=== PATIENT | female | born 1945 | race Caucasian/White ===

== ENCOUNTER 2016-05-30 18:41 | Emergency (ER) | payer MEDICARE ==
[~2016-05-30] VITALS: Ht 167.6 cm; Wt 66.4 kg
[~2016-05-30 18:41] MED LIST: ALPR0.254 PO; ASPI-973 PO; CALC1CAP22 PO; CIPR-198 PO; FAMO20T PO; FERR325T39 PO; FIBE1TAB4 PO; GLIP10TA10 PO; LEVO150T5 PO; LORA1TAB PO; LOSA1TAB70 PO; METF500T4 PO; NPH,100V10 SUBQ; OMEG1CAP25 PO; ONDA-54 PO; PANT40TA2 PO; PANT40TA3 PO; PRAV10TA2 PO; RES30 PO; SENN25TA8 PO; SLO64 PO
--- NOTE | 2016-05-30 18:50 | ED.REPORT ---
HPI-Chest Pain 40 and Over Date of Service May 30, 2016 ED Provider: Alexy Florence DO 70 year old female with a history of CAD, hyperlipidemia, HTN, cardiac stent placement, cholecystectomy, and type II diabetes presents to the ER accompanied by her complaining of "a couple days" of intermittent heavy, aching left chest pressure while walking around [employer], with radiation down her left arm. Pain onset today about an hour ago after eating dinner. She has experienced similar symptoms in the past. Associated symptom of nausea. Patient denies SOB, vomiting and diarrhea. Nursing Notes Stated Complaint: CHEST PAIN Nursing Notes Reviewed: Yes Allergies: Coded Allergies: Adhesives (Verified Allergy, Intermediate, Rash, 05/30/16) oxycodone (Verified Allergy, Unknown, vomiting, 05/30/16) amoxicillin (Verified Adverse Reaction, Mild, Diarrhea, 05/30/16) Uncoded Allergies: BANDAID ADHESIVE (Allergy, Mild, 12/05/11) Scheduled Amlodipine (Amlodipine) 10 Mg Tablet 10 MG PO DAILY Aspirin (Aspirin) 81 Mg Tablet 81 MG PO MORNING Bran/Gum/Fib/Katie/Psyl/Kelp/Pec (Fiber 6 Tablet) 1,000 Mg Tablet 1,000 MG PO DAILY Calcium Carbonate/Vitamin D3 (Calcium 600 + Vit D 400 Softgl) 1 Each Capsule 1 CAPSULE PO DAILY Fluoxetine (Fluoxetine) 10 Mg Capsule 10 MG PO DAILY Glipizide (Glipizide) 10 Mg Tablet 5 MG PO DAILY Insulin Glargine (Lantus U100 Solostar Insulin Pen) 100 Unit/1 Ml Insuln.pen 15 UNIT SUBQ HS Levothyroxine (Levothyroxine) 137 Mcg Tablet 137 MCG PO DAILY Losartan Potassium (Losartan Potassium) 100 Mg Tablet 100 MG PO DAILY Magnesium Chloride (Slow-Mag) 64 Mg Tablet 64 MG PO TID Metformin ER (Metformin ER) 750 Mg Tablet 750 MG PO DAILY [place]-3 Fatty Acids/Fish Oil ([place] 3 Fish Oil Softgel) 1 Each Capsule.dr 2 CAPSULE PO QAM Pantoprazole DR (Pantoprazole DR) 40 Mg Tablet.dr 40 MG PO MORNING 30 minutes before meal. Pravastatin (Pravastatin) 10 Mg Tablet 5 MG PO HS Ranitidine (Ranitidine) 150 Mg Capsule 150 MG PO HS Scheduled PRN Temazepam (Temazepam) 30 Mg Cap 30 MG PO HS PRN PRN For Sleep Miscellaneous Medications Melatonin (Melatonin) 1 Mg Tablet 3 MG PO [place]-3 Fatty Acids/Fish Oil ([place] 3 1,000 mg Softgel) 1 Each Capsule 2 EACH PO General Time Seen by MD: 18:49 Chief Complaint Chest pain Hx Obtained From: Patient, Spouse Arrived By: Walk-in Sudden in Onset?: No Onset Occurred: 2 days ago Symptom Duration: Since onset Location: : Chest left Quality: Aching, Heaviness Radiation: : Arm left Severity: Current: Moderate Severity: Maximum: Moderate Similar Sx Previous: Yes Past Medical History Past Medical History Notes: PCP: Dr. Avendaño Supervisor [place] Department: Dr. Maguire Admitted in April 2014, fully ruled out, nuclear stress test negative Seen 09/21/15 for CP in, Negative workup with neg EKG, troponin x 2, D/C'd to home Past Medical History Coronary artery disease Type II diabetes, insulin requiring Hypothyroidism Sleep apnea IBS Anxiety Reports: GERD, Hyperlipidemia, Hypertension Reports: Thyroid disease, Urinary tract infection Past Surgical History Cardiac catheterization with stent to LAD in 2011 EGD w/gastritis and colonoscopy by Dr. Stephens in 2012 Hemorrhoid banding Colonoscopy and EGD by Dr. Daniel 07/31/15 (normal except possible short segment Anthony's Reports: Angioplasty, Cholecystectomy Reports: Tubal ligation Family History Extensive family history of heart disease Smoking History Former Smoker Social History Alcohol Use: "Social" Drug Use: Denies drug use Other Social History: Good social support, , Local resident Ambulatory Status Independent Review of Systems Constitutional: Denies: Chills, Fever Respiratory: Denies: Non-productive cough, Shortness of breath Cardiovascular: Reports: Chest pain GI: Reports: Nausea, Denies: Vomiting Musculoskeletal: Reports: Extremity pain (Left Arm), Denies: Back pain, Neck pain Skin: Denies Diaphoresis Complete sys rev & neg: except as marked. Physical Exam Initial Vital Signs Vital Signs (First) Date Time Temp Pulse Resp B/P Pulse Ox O2 Delivery O2 Flow Rate FiO2 05/30/16 19:05 36.6 51 13 152/61 96 Room Air Initial VS: Reviewed Head / Eyes: Atraumatic, Normocephalic Neck: Supple, Non-tender, Full range of motion Extremities: Vascular intact, Neuro intact, No swelling, No tenderness Skin: Warm, Dry, No cyanosis Neurologic: Alert, Oriented, Nonfocal Psychiatric: Mood/affect normal, Behavior normal, Normal thought content General/Constitutional: Awake, Alert, Well developed, Well nourished Distress / Hydration: Positive: Distress mild Respiratory / Chest: Breath sounds NL, Breath sounds = bilat, No respiratory distress, No rales, No rhonchi, No wheezing, No stridor, No chest tenderness Cardiovascular: Heart rate NL, Regular rhythm, Heart sounds NL, No murmurs, Peripheral circulation NL, Pulses = bilaterally, No gross BP differential Abdomen: Soft, Non-tender, No guarding, No rebound, No distention Interpretation & Diagnostics Lab Results Interpretation Result Diagram: 05/30/16 19005/30/16 190 Test 05/30/16 19:00 05/30/16 22:34 White Blood Count 6.5th/mm3 (3.8-10.1) Red Blood Count 4.72mil/mm3 (3.90-5.20) Hemoglobin 13.7g/dL (12.0-15.6) Hematocrit 41.6% (35.0-46.0) Mean Corpuscular Volume 88.1fL (81-100) Mean Corpuscular Hemoglobin 29.0pg (27.0-35.0) Mean Corpuscular Hemoglobin Concent 32.9% (32.0-37.0) Red Cell Distribution Width 13.5% (12.3-15.4) Platelet Count 244bil/L (150-400) Neutrophils (%) (Auto) 60.0% (40-74) Lymphocytes (%) (Auto) 30.5% (14-46) Monocytes (%) (Auto) 6.2% (4-12) Eosinophils (%) (Auto) 2.8% (0-5) Basophils (%) (Auto) 0.5% (0-3) D-Dimer < 0.50mg/L FEU (<0.50) Sodium Level 139mEq/L (134-144) Potassium Level 4.0mEq/L (3.5-5.2) Chloride Level 101mEq/L (97-108) Carbon Dioxide Level 23mmol/L (18-29) Blood Urea Nitrogen 23mg/dL (8-27) Creatinine 0.49mg/dL (0.57-1.00) Estimat Glomerular Filtration Rate 178mL/min (>59) Glucose Level 165mg/dL (60-99) Calcium Level 9.5mg/dL (8.5-10.1) Magnesium Level 1.9mg/dL (1.6-2.6) Total Bilirubin 0.3mg/dL (0.0-1.2) Aspartate Amino Transf (AST/SGOT) 21U/L (0-50) Alanine Aminotransferase (ALT/SGPT) 23U/L (0-32) Alkaline Phosphatase 81U/L (25-165) Total Protein 7.2g/dL (6.4-8.4) Albumin 4.4g/dL (3.4-5.0) Lipase 16U/L (13-60) Hold Santiago Top Tube Received (Received) Troponin T 0.010ug/L (0.0-0.011) ECG Interpretation ECG Interpretation: Sinus rhythm, rate 61 Time: 19:17 Interpreted by: ED physician ECG Interpretation: Sinus bradycardia Time: 00:09 Interpreted by: ED physician Normal ECG Interpretation: Normal sinus rhythm, No acute ischemic changes, Normal QRS, Normal axis, Normal intervals, No change from prior ECGs, Adequate tracing X-Ray Chest Interpretation Chest Xray Interpretation: IMPRESSION: No acute disease is seen in the upright portable chest. Dictated by: Keaton Arguello M.D. on 05/30/2016 at 19:07 Approved by: Keaton Arguello M.D. on 05/30/2016 at 19:07 View: Portable, 1 view Interpretation / Wet Read by: Interpret - Radiologist Re-Eval/Medical Decision Med Decision/Clinical Course 70-year-old female with history of coronary disease and reflux presents with burning chest pain. Her pain did radiate down the left arm. EKGs were not essentially normal without evidence of ischemia. Serum troponins were negative. IV Protonix was given with some relief. My recommendations were for hospital observation serial troponins and a stress test due to the nature of her complaint. Certainly may well be gastrointestinal however with her history of stents I think that she should have a stress test. I discussed this with her. She would not stay if it were an observation status for insurance reasons. With her normal troponin and EKGs I am compelled to admit her as observation status. She would not agree to this. She did agree to the 4 hour troponin. She does agree to follow-up. I have her cell phone number and I tacked that her. I will be in touch with her tomorrow. We will also send copy of the note off to her moss gatherer to help arrange for close outpatient follow- up. Time of Eval: 19:37 Re-Evaluation/Progress Note: Discussed lab and imaging results. Updated patient on the plan of care. Time of Eval: 23:41 Re-Evaluation/Progress Note: Discussed plan to discharge. Patient is amenable to the plan. Return precautions given. All other questions addressed. Counseled Regarding: Diagnosis, Lab results, Need for follow-up, When/why to return to ED Discharge & Departure Primary Impression: Chest pain Chest pain type: precordial pain Qualified Code: R07.2 - Precordial pain Disposition: Home Discharge Condition All VS Reviewed: Yes Condition: Improved Patient Instructions: Chest Pain (ED) Additional Instructions: As we discussed, hospitalization for observation and stress testing is recommended and indicated. Your blood enzymes are normal, your ECG is reassuring, and your D-Dimer (blood clot test) is negative. Call your moss gatherer tomorrow and tell him that you need to be seen in- office. We have sent a copy of my note from your visit today to Dr. Maguire. You will also need to follow-up with your primary care provider next week. Return to the ER if you develop worsening chest pain, shortness of breath, profuse sweating, pain/swelling in your legs, nausea, or any other concerning symptoms. Referrals: Vanessa Hanson PA-C (PCP) Jorge Maguire MD Attestation Portions of this note were transcribed by Colby Saavedra. I, Dr. Florence, personally performed the history, physical exam and medical decision-making; I reviewed and confirmed the accuracy of the information in the transcribed note. Signed by: Cyrus Barton, 05/30/2016 at 23:44 copies to: Vanessa Hanson PA-C; Jorge Maguire MD, Todd P DO May 30, 2016 18:50 COLBY SAAVEDRA May 30, 2016 19:04
[2016-05-30 19:05] VITALS: BP 152/61; PULSE 51; RESP 13; O2SAT 96
[2016-05-30 19:06] LABS: BASOPHILS % (AUTO) 0.5 % (0-3); EOSINOPHILS % (AUTO) 2.8 % (0-5); MONOCYTES % (AUTO) 6.2 % (4-12); Mean Corpuscular Volume 88.1 fL (81-100); Platelet Count 244 bil/L (150-400)
--- NOTE | 2016-05-30 19:09 | DRSVH ---
PROCEDURE: X-RAY CHEST ONE VIEW, PORTABLE ([id number]) INDICATIONS: CP TECHNIQUE: One view of the chest was acquired. COMPARISON: [facility], CR, XR CHEST 1VW (PORTABLE), 10/21/2015, 17:20. FINDINGS: Surgical changes and devices: panel monitor leads are seen over the chest. Vascular clips in the ri ght upper quadrant of the abdomen would indicate previous cholecystectomy Lungs and pleura: No pleural effusions or pneumothorax. Lungs are clear. Mediastinum: Mediastinal contours appear normal. Heart size is normal. Bones and chest wall: No suspicious bony lesions. Overlying soft tissues appear unremarkable. IMPRESSION: No acute disease is seen in the upright portable chest. Dictated by: Keaton Arguello M.D. on 05/30/2016 at 19:07 Approved by: Keaton Arguello M.D. on 05/30/2016 at 19:07
[2016-05-30] MEDS ORDERED: LOSA100T29 PO (19:24)
[2016-05-30] MEDS ORDERED: RANI150C4 PO (19:24)
[2016-05-30] MEDS ORDERED: AMLO10TA3 PO (19:24)
[2016-05-30] MEDS ORDERED: INSU100I13 SUBQ (19:24)
[2016-05-30] MEDS ORDERED: METF750T2 PO (19:24)
[2016-05-30] MEDS ORDERED: LEVO137T2 PO (19:24)
[2016-05-30 19:30] LABS: TROPONIN T < 0.010 ug/L (0.0-0.011)
[2016-05-30] MEDS ORDERED: Nitroglycerin 2% 1 Gm Ointment TOPICAL ONE (19:35)
[2016-05-30] MEDS ORDERED: fentaNYL-PF 50 mCg/mL 2 mL Inj IVPUSH ONE (19:35)
[2016-05-30 19:40] LABS: Magnesium 1.9 mg/dL (1.6-2.6)
[2016-05-30] MEDS ORDERED: FLUO10CA20 PO (19:40)
[2016-05-30] MEDS ORDERED: OMEG1CAP56 PO (19:40)
[2016-05-30] MEDS ORDERED: MELA1TAB9 PO (19:40)
[2016-05-30] MEDS ORDERED: LidocaineVisc 2%:Antacid 1:1 10 mL Syringe PO ONE (19:45)
[2016-05-30] MEDS ORDERED: Pantoprazole 4 mg/mL 10 mL Inj IVPUSH ONE (19:45)
[2016-05-30 20:59] VITALS: BP 119/50; PULSE 57; RESP 20; O2SAT 95
[2016-05-30 22:42] VITALS: BP 118/53; PULSE 51; RESP 16; O2SAT 98
[2016-05-30 23:20] VITALS: BP 107/53; PULSE 49; RESP 16; O2SAT 97
[2016-05-31 00:02] VITALS: BP 107/53; PULSE 49; RESP 16; O2SAT 97
== END 2016-05-31 00:07 | disposition home or self-care (01) ==
LOC: SED 18:41
DX: R07.2 Precordial pain (principal); R11.0 Nausea; I11.9 Hypertensive heart disease without heart failure; E11.59 Type 2 diabetes mellitus with other circulatory complications; I25.10 Atherosclerotic heart disease of native coronary artery without angina pectoris; K21.9 Gastro-esophageal reflux disease without esophagitis; E03.9 Hypothyroidism, unspecified; E78.5 Hyperlipidemia, unspecified; Z95.5 Presence of coronary angioplasty implant and graft; Z79.82 Long term (current) use of aspirin; Z79.4 Long term (current) use of insulin; Z79.84 Long term (current) use of oral hypoglycemic drugs; Z87.891 Personal history of nicotine dependence; Z88.1 Allergy status to other antibiotic agents; Z88.5 Allergy status to narcotic agent; Z91.048 Other nonmedicinal substance allergy status